=== PATIENT | male | born 1950 | race Caucasian/White ===

== ENCOUNTER 2016-09-29 13:01 | Emergency (ER) | payer OTHER ==
[~2016-09-29] VITALS: Ht 180.3 cm; Wt 98.2 kg
[~2016-09-29 13:01] MED LIST: ADULT LOW DOSE81 M1 PO; ASPIR-LOW81 MG PO; ASPIRIN EC325 MG PO; ASPIRIN325 MG PO; ASPIRIN81 M1 PO; Aspirin E.C. PO; CLONAZEPAM0.5 MG PO; CLOPIDOGREL75 MG PO; COUMADIN,JANTO2.5 MG PO; COUMADIN,JANTOVE5 MG PO; COUMADIN2.5 MG PO; COUMADIN5 MG PO; CRESTOR40 MG; CRESTOR40 MG PO; DESYREL100 MG PO; ENALAPRIL MALE2.5 MG PO; FLAX OIL1000 MG PO; FLAX SEED OIL; FLAX SEED OIL PO; FLAXSEED OIL1000 M2 PO; FLAXSEED OIL1000 M4 PO; FLUOXETINE HCL20 MG PO; Flaxseed Oil PO; GABAPENTIN300 MG PO; INDERAL LA80 MG PO; INNOPRAN XL80 MG PO; KEFLEX500 MG PO; KLONOPIN0.5 M1 PO; KlonoPIN PO; LIDEX 0.05% SOL60 ML TP; LIPITOR20 MG PO; LIPITOR40 MG PO; LIPITOR80 MG PO; LOW DOSE ASPIRI81 M1 PO; METOPROLOL SUCC25 MG PO; NEURONTIN300 MG PO; NIASPAN,SLO-N1000 MG PO; NIASPAN1000 MG PO; NITROSTAT0.4 MG SL; Niaspan,Slo-Niacin PO; OMEPRAZOLE20 M2 PO; PLAVIX75 MG PO; PROZAC20 MG PO; PROZAC40 MG PO; PROzac PO; RANEXA500 MG PO; RANITIDINE HCL150 M1 PO; RANITIDINE HCL150 MG PO; REQUIP2 MG PO; ROPINIROLE HCL4 M1 PO; TRAMADOL HCL100 MG PO; TRAZODONE HCL50 MG PO; Toprol XL PO; Vasotec PO; WARFARIN SODIUM5 MG PO; XARELTO15 MG PO; XARELTO20 MG PO; Zantac PO; niacin
[2016-09-29 14:44] LABS: HEMATOCRIT 44.8 % (38.0-50.0); MCH 31.2 PG (29.0-34.0); MCHC 34.4 G/DL (30.0-36.0); MCV 90.7 FL (86-99); MEAN PLAT.VOLUME 9.8 uM^3 (9.0-12.4); PLATELET COUNT 232 K/uL (156-360); RBC DIS.WIDTH-CV 12.3 % (11.8-14.6); RBC DIS.WIDTH-SD 39.9 % (39-53); RED BLOOD COUNT 4.94 M/uL (4.00-5.50); WHITE BLOOD COUNT 8.3 K/uL (4.1-10.2)
[2016-09-29 14:52] LABS: CHLORIDE 108 mEq/L (99-109); POTASSIUM 4.5 mEq/L (3.7-5.4); SODIUM 138 mEq/L (136-147)
[2016-09-29 14:53] LABS: GLUCOSE 104 mg/dL (70-99)
[2016-09-29 14:55] LABS: ANION GAP 8 MEQ/L (2-14)
[2016-09-29 14:57] LABS: GFR ESTIMATE (CALCULATED) > 59 mL/min/
[2016-09-29 14:58] LABS: UREA NITROGEN (BUN) 14 mg/dL (9-23)
[2016-09-29 16:02] LABS: D-DIMER ELISA 0.73 mg/L FEU (< 0.57)
[2016-09-29 16:08] LABS: TROP-I INTERPRETATION NEGATIVE; TROPONIN-I < 0.01 ng/mL (0.0-0.30)
[2016-09-29] MEDS ORDERED: PREDNISONE50 MG PO (18:24)
[2016-09-29] MEDS ORDERED: VENTOLIN HFA18 GM IH (18:24)
[2016-09-29] MEDS ORDERED: TESSALON PERLE100 MG PO (19:21)
[2016-09-29 19:33] VITALS: BP 117/69
== END 2016-09-29 19:36 | disposition home or self-care (01) ==
LOC: EME 13:01
PROVIDERS: Nurse Practitioner Family
DX: J44.1 Chronic obstructive pulmonary disease with (acute) exacerbation (principal); R07.9 Chest pain, unspecified; Z86.718 Personal history of other venous thrombosis and embolism; I10 Essential (primary) hypertension; I25.2 Old myocardial infarction; K21.9 Gastro-esophageal reflux disease without esophagitis; Z87.442 Personal history of urinary calculi; Z85.46 Personal history of malignant neoplasm of prostate; Z85.828 Personal history of other malignant neoplasm of skin; Z85.21 Personal history of malignant neoplasm of larynx; Z98.61 Coronary angioplasty status; Z87.891 Personal history of nicotine dependence
CPT/HCPCS: 71020; 71275; 80048; 84484; 85027; 85379; 93005; 94640; 94640 76; 99281; 99285; J7030; J7512

== ENCOUNTER 2016-11-29 17:02 | Emergency (ER) | payer OTHER ==
[~2016-11-29] VITALS: Ht 180.3 cm; Wt 101.0 kg
[~2016-11-29 17:02] MED LIST changes: +PREDNISONE50 MG PO; +TESSALON PERLE100 MG PO; +VENTOLIN HFA18 GM IH
[2016-11-29 17:56] LABS: HEMATOCRIT 39.2 % (38.0-50.0); MCH 30.7 PG (29.0-34.0); MCHC 33.4 G/DL (30.0-36.0); MCV 91.8 FL (86-99); MEAN PLAT.VOLUME 9.6 uM^3 (9.0-12.4); PLATELET COUNT 225 K/uL (156-360); RBC DIS.WIDTH-CV 12.5 % (11.8-14.6); RBC DIS.WIDTH-SD 40.5 % (39-53); RED BLOOD COUNT 4.27 M/uL (4.00-5.50); WHITE BLOOD COUNT 6.9 K/uL (4.1-10.2)
[2016-11-29 18:04] LABS: CHLORIDE 110 mEq/L (99-109); POTASSIUM 4.1 mEq/L (3.7-5.4); SODIUM 143 mEq/L (136-147)
[2016-11-29 18:06] LABS: GLUCOSE 116 mg/dL (70-99)
[2016-11-29 18:07] LABS: ANION GAP 7 MEQ/L (2-14); PTT 22.9 (25-32)
[2016-11-29 18:09] LABS: GFR ESTIMATE (CALCULATED) > 59 mL/min/
[2016-11-29 18:10] LABS: UREA NITROGEN (BUN) 14 mg/dL (9-23)
[2016-11-29] MEDS ORDERED: KEFLEX500 MG PO (19:35)
[2016-11-29 19:57] VITALS: BP 113/77
== END 2016-11-29 19:58 | disposition home or self-care (01) ==
LOC: EME 17:02
PROVIDERS: Physician Assistant
DX: I80.02 Phlebitis and thrombophlebitis of superficial vessels of left lower extremity (principal); M79.89 Other specified soft tissue disorders; S80.812A Abrasion, left lower leg, initial encounter; I10 Essential (primary) hypertension; I25.2 Old myocardial infarction; W26.8XXA Contact with other sharp object(s), not elsewhere classified, initial encounter; Z79.01 Long term (current) use of anticoagulants; Z86.718 Personal history of other venous thrombosis and embolism; Z95.5 Presence of coronary angioplasty implant and graft
CPT/HCPCS: 80048; 85027; 85610; 85730; 93971; 99281; 99284

== ENCOUNTER 2017-11-11 19:25 | Emergency (ER) | payer OTHER ==
[~2017-11-11] VITALS: Ht 180.3 cm; Wt 94.1 kg
[2017-11-11 21:04] LABS: BASOPHIL (%) 0.4 % (0-1); EOSINOPHIL (%) 2.4 % (0-5); EOSINOPHIL COUNT 0.2 K/uL (0-0.3); HEMATOCRIT 39.8 % (38.0-50.0); HEMOGLOBIN 13.5 G/DL (12.5-16.6); IMMATURE GRANULOCYTE (%) 0.4 % (0.0-0.7); LYMPHOCYTE (%) 17.9 % (15-42); LYMPHOCYTE COUNT 1.4 K/uL (1.0-2.8); MCH 31.5 PG (29.0-34.0); MCHC 33.9 G/DL (30.0-36.0); MONOCYTE (%) 8.3 % (3-12); MONOCYTE COUNT 0.7 K/uL (0-0.8); NEUTROPHIL (%) 70.6 % (45-76); NEUTROPHIL COUNT 5.6 K/uL (1.8-6.4); PLATELET COUNT 202 K/uL (156-360); RBC DIS.WIDTH-CV 12.3 % (11.8-14.6); RBC DIS.WIDTH-SD 42.3 % (39-53); RED BLOOD COUNT 4.28 M/uL (4.00-5.50); WHITE BLOOD COUNT 7.9 K/uL (4.1-10.2)
[2017-11-11 21:07] LABS: ALBUMIN 3.8 G/DL (3.2-4.8); CHLORIDE 104 MEQ/L (99-109); DIRECT BILIRUBIN 0.1 mg/dL (0.0-0.3); POTASSIUM 3.6 MEQ/L (3.7-5.4); SODIUM 137 MEQ/L (136-147); TOTAL BILIRUBIN 0.4 MG/DL (0.0-1.0)
[2017-11-11 21:11] LABS: TROP-I INTERPRETATION NEGATIVE; TROPONIN-I < 0.01 ng/mL (0.0-0.30)
[2017-11-11 21:13] LABS: ALKALINE PHOSPHATASE 98 IU/L (3-129); ALT (GPT) 15 IU/L (3-49); AST (GOT) 18 IU/L (2-34); CREATININE 0.7 MG/DL (0.6-1.3); GFR ESTIMATE (CALCULATED) > 59 mL/min/ (58.99-99999); GLUCOSE 99 mg/dL (70-99); LIPASE 14 U/L (1.0-51.0); TOTAL PROTEIN 6.1 G/DL (6.4-8.3); UREA NITROGEN (BUN) 14 mg/dL (9-23)
[2017-11-11 22:05] VITALS: BP 141/77
== END 2017-11-11 22:09 | disposition home or self-care (01) ==
LOC: EME 19:25
PROVIDERS: Emergency Medicine
DX: R11.2 Nausea with vomiting, unspecified (principal); I10 Essential (primary) hypertension; J44.9 Chronic obstructive pulmonary disease, unspecified; I25.2 Old myocardial infarction; K21.9 Gastro-esophageal reflux disease without esophagitis; F32.9 Major depressive disorder, single episode, unspecified; F41.9 Anxiety disorder, unspecified; Z87.442 Personal history of urinary calculi; Z86.718 Personal history of other venous thrombosis and embolism; Z85.46 Personal history of malignant neoplasm of prostate; Z85.828 Personal history of other malignant neoplasm of skin; Z85.818 Personal history of malignant neoplasm of other sites of lip, oral cavity, and pharynx; Z95.5 Presence of coronary angioplasty implant and graft; Z87.891 Personal history of nicotine dependence
CPT/HCPCS: 80048; 80076; 83605; 83690; 84484; 85025; 93005; 99281; 99284

== ENCOUNTER 2018-01-06 20:22 | Emergency (ER) | payer OTHER ==
[~2018-01-06] VITALS: Ht 182.9 cm; Wt 97.2 kg
[2018-01-06 20:54] LABS: HEMATOCRIT 38.6 % (38.0-50.0); HEMOGLOBIN 13.3 G/DL (12.5-16.6); MCH 31.8 PG (29.0-34.0); MCHC 34.5 G/DL (30.0-36.0); MCV 92.3 FL (86-99); PLATELET COUNT 181 K/uL (156-360); RBC DIS.WIDTH-CV 12.1 % (11.8-14.6); RBC DIS.WIDTH-SD 41.3 % (39-53); RED BLOOD COUNT 4.18 M/uL (4.00-5.50)
[2018-01-06 21:05] LABS: CHLORIDE 113 mEq/L (99-109); POTASSIUM 3.5 mEq/L (3.7-5.4); SODIUM 141 mEq/L (136-147)
[2018-01-06 21:07] LABS: GLUCOSE 121 mg/dL (70-99)
[2018-01-06 21:11] LABS: CREATININE 0.9 mg/dL (0.6-1.3); GFR ESTIMATE (CALCULATED) > 59 mL/min/ (58.99-99999)
[2018-01-06 21:12] LABS: UREA NITROGEN (BUN) 21 mg/dL (9-23)
[2018-01-06 22:00] VITALS: BP 121/57
== END 2018-01-06 23:14 | disposition home or self-care (01) ==
LOC: EME → EDBD 20:22 → EME 20:22
PROVIDERS: Emergency Medicine
DX: S06.0X0A Concussion without loss of consciousness, initial encounter (principal); V80.010A Animal-rider injured by fall from or being thrown from horse in noncollision accident, initial encounter; Y93.52 Activity, horseback riding; Z79.82 Long term (current) use of aspirin; J44.9 Chronic obstructive pulmonary disease, unspecified; I10 Essential (primary) hypertension; K21.9 Gastro-esophageal reflux disease without esophagitis; F32.9 Major depressive disorder, single episode, unspecified; I25.2 Old myocardial infarction; G25.81 Restless legs syndrome; Z85.828 Personal history of other malignant neoplasm of skin; F43.10 Post-traumatic stress disorder, unspecified; Z95.5 Presence of coronary angioplasty implant and graft; Z87.891 Personal history of nicotine dependence
CPT/HCPCS: 70450; 72125; 80048; 85027; 85610; 85730; 99281; 99284

== ENCOUNTER 2018-02-22 20:51 | Emergency (ER) | payer OTHER ==
[~2018-02-22] VITALS: Ht 180.3 cm; Wt 92.6 kg
[2018-02-22] MEDS ORDERED: NORCO 5/3251 TABLET PO (22:45)
[2018-02-22 22:59] VITALS: BP 146/78
== END 2018-02-22 23:00 | disposition home or self-care (01) ==
LOC: EME 20:51 → EXP 20:51
DX: S80.02XA Contusion of left knee, initial encounter (principal); W55.12XA Struck by horse, initial encounter; I10 Essential (primary) hypertension; J44.9 Chronic obstructive pulmonary disease, unspecified; K21.9 Gastro-esophageal reflux disease without esophagitis; I25.2 Old myocardial infarction; F41.9 Anxiety disorder, unspecified; F32.9 Major depressive disorder, single episode, unspecified; F43.10 Post-traumatic stress disorder, unspecified; G25.81 Restless legs syndrome; Z87.891 Personal history of nicotine dependence; Z87.442 Personal history of urinary calculi; Z86.718 Personal history of other venous thrombosis and embolism; Z95.5 Presence of coronary angioplasty implant and graft; Z85.828 Personal history of other malignant neoplasm of skin; Z85.46 Personal history of malignant neoplasm of prostate; Z85.819 Personal history of malignant neoplasm of unspecified site of lip, oral cavity, and pharynx; Z90.49 Acquired absence of other specified parts of digestive tract
CPT/HCPCS: 73564; 99281; 99284

== ENCOUNTER 2018-02-27 00:11 | Emergency (ER) | payer OTHER ==
[~2018-02-27] VITALS: Ht 180.3 cm; Wt 95.5 kg
[~2018-02-27 00:11] MED LIST changes: +NORCO 5/3251 TABLET PO
[2018-02-27 00:16] VITALS: BP 163/64
== END 2018-02-27 02:06 | disposition home or self-care (01) ==
LOC: EME 00:11
DX: S80.12XA Contusion of left lower leg, initial encounter (principal); M71.22 Synovial cyst of popliteal space [Baker], left knee; I10 Essential (primary) hypertension; J44.9 Chronic obstructive pulmonary disease, unspecified; K21.9 Gastro-esophageal reflux disease without esophagitis; I25.2 Old myocardial infarction; G25.81 Restless legs syndrome; F43.10 Post-traumatic stress disorder, unspecified; F32.9 Major depressive disorder, single episode, unspecified; Z87.891 Personal history of nicotine dependence; Z86.718 Personal history of other venous thrombosis and embolism; Z87.442 Personal history of urinary calculi; Z95.5 Presence of coronary angioplasty implant and graft; Z90.49 Acquired absence of other specified parts of digestive tract; Z85.46 Personal history of malignant neoplasm of prostate; Z85.828 Personal history of other malignant neoplasm of skin; Z85.819 Personal history of malignant neoplasm of unspecified site of lip, oral cavity, and pharynx
CPT/HCPCS: 93971; 99281; 99283